=== PATIENT | male | born 1955 | race Caucasian/White ===

== ENCOUNTER 2021-01-17 12:26 | Inpatient (IN) | payer BC ==
[~2021-01-17] VITALS: Ht 165.1 cm; Wt 68.0 kg
[2021-01-17] MEDS ORDERED: MEDROL DOSE PACK4 MG PO (12:36)
--- NOTE | 2021-01-17 12:44 | NUR ---
FSBS= 95 MG/DL
[2021-01-17 13:15] LABS: CALC OSMOLALITY 281 mosm/kg (275-300); CALCIUM 8.6 mg/dL (8.5-10.1); CARBON DIOXIDE 27.8 mmol/L (21.0-32.0); CHLORIDE - SERUM 105 mmol/L (98-107); GLUCOSE 97 mg/dL (74-106); POTASSIUM - SERUM 4.1 mmol/L (3.5-5.1); SODIUM 140 mmol/L (136-145); UREA NITROGEN 22 mg/dL (7-18); eGFR NON AFRICAN AMERICAN 80 mL/min (90-120)
[2021-01-17 13:20] LABS: BASOPHILS 0.3 % (0-2); EOSINOPHILS 0.6 % (0-7); HEMATOCRIT 48.5 % (42.0-54.0); HEMOGLOBIN 16.1 g/dL (13.5-17.5); LYMPHOCYTES 15.4 % (15-50); MCH 31.1 pg (26.0-34.0); MCHC 33.3 g/dL (31.0-37.0); MCV 93.4 fL (80.0-100.0); MEAN PLATELET VOLUME 7.5 fL (7.4-10.4); MONOCYTES 5.6 % (2-11); NEUTROPHILS 78.1 % (40-80); PLATELET COUNT 216 10x3/uL (130-400); RBC 5.19 10x6/uL (4.20-6.10); RDW 14.2 % (11.5-14.5); WBC 12.4 10x3/uL (4.8-10.8)
[2021-01-17 13:40] LABS: ALKALINE PHOSPHATASE 48 U/L (30-120); ALT (SGPT) 22 U/L (10-68); BILIRUBIN - TOTAL 0.28 mg/dL (0.2-1.3); CKMB 1.2 U/L (0.0-3.6); CREATINE KINASE 35 UL (21-232); MAGNESIUM - SERUM 2.3 mg/dL (1.8-2.4); PROTEIN - SERUM 7.4 g/dL (6.4-8.2); THYROID STIMULATING HORMONE 1.55 uIU/mL (0.36-3.74)
[2021-01-17 13:43] LABS: TROPONIN-I < 0.017 ng/mL (0.000-0.060)
[2021-01-17 13:56] LABS: UDS - AMPHET NEGATIVE QUAL (NEGATIVE); UDS - BARB NEGATIVE QUAL (NEGATIVE); UDS - BENZO NEGATIVE QUAL (NEGATIVE); UDS - COCAINE NEGATIVE QUAL (NEGATIVE); UDS - OPIATE NEGATIVE QUAL (NEGATIVE); UDS - PCP NEGATIVE QUAL (NEGATIVE); UDS - THC NEGATIVE QUAL (NEGATIVE)
[2021-01-17 14:08] LABS: BACTERIA FEW HPF (<MOD); BILIRUBIN NEGATIVE (NEGATIVE); KETONE NEGATIVE mg/dL (< 1+); NITRITE NEGATIVE (NEGATIVE); SQUAMOUS EPITHELIAL <1 HPF (0-4); UROBILINOGEN NORMAL mg/dL (< 2); WHITE CELLS - URINE 1 HPF (0-1)
[2021-01-17 19:11] LABS: MAGNESIUM - SERUM 2.2 mg/dL (1.8-2.4)
[2021-01-17 20:00] VITALS: BP 167/90
--- NOTE | 2021-01-17 20:00 | NUR ---
PT UP WALKING AROUND ROOM. NEURO CHECK FINDS OBSTETRICS/GYNECOLOGY NURSE EQUAL/STRONG BILAT UPPER AND LOWER EXT. NO FACIAL DROOP AND TONGUE IS MIDLINE. DENIES NUMBNESS AND/OR TINGLING. PT ALERT & ORIENTED. DOES HAVE DIFFICULTY FINDING WORDS. TELEMETRY PLACE ON PT AND IS RUNNING SR. RIGHT AC IV REMOVED CATHETER INTACT DUE TO SWELLING WHILE BOLUS OF FLUID WAS INFUSING. PT HAS BILAT HEARING AIDS. HISTORY AND HOME MEDS REVIEWED. PT STATES HE TOOK PRESCRIPTION MEDS IN PAST BUT HAS NOT HAD PCP OR TAKEN ANY HOME MEDS IN 2 YEARS. NO OTHER NEEDS. WILL CONTINUE TO MONITOR.
[2021-01-17 20:40] LABS: APTT 39.7 SECONDS (22.8-39.4); INR 1.24 (0.85-1.17); PROTIME 14.5 SECONDS (11.6-15.0)
[2021-01-17 20:41] LABS: D-DIMER-QUANTITATIVE 1.92 ug/mLFEU (0.20-0.54)
[2021-01-18 00:33] VITALS: BP 123/73
[2021-01-18 02:46] VITALS: BMI 25.0
[2021-01-18 04:00] VITALS: BP 136/76
[2021-01-18 05:35] LABS: BASOPHILS 0.4 % (0-2); EOSINOPHILS 1.3 % (0-7); HEMATOCRIT 46.4 % (42.0-54.0); HEMOGLOBIN 15.5 g/dL (13.5-17.5); LYMPHOCYTES 31.9 % (15-50); MCH 31.2 pg (26.0-34.0); MCHC 33.3 g/dL (31.0-37.0); MCV 93.7 fL (80.0-100.0); MEAN PLATELET VOLUME 7.6 fL (7.4-10.4); MONOCYTES 9.9 % (2-11); NEUTROPHILS 56.5 % (40-80); PLATELET COUNT 200 10x3/uL (130-400); RBC 4.96 10x6/uL (4.20-6.10); RDW 14.4 % (11.5-14.5)
[2021-01-18 05:50] LABS: WBC 8.7 10x3/uL (4.8-10.8)
[2021-01-18 06:12] LABS: ALBUMIN 3.3 g/dL (3.4-5.0); ALKALINE PHOSPHATASE 44 U/L (30-120); ALT (SGPT) 18 U/L (10-68); BILIRUBIN - TOTAL 0.26 mg/dL (0.2-1.3); CALC OSMOLALITY 279 mosm/kg (275-300); CALCIUM 7.9 mg/dL (8.5-10.1); CARBON DIOXIDE 25.5 mmol/L (21.0-32.0); CHLORIDE - SERUM 106 mmol/L (98-107); CHOL - HDL RATIO 3.7 ratio (2.3-4.9); CHOLESTEROL, TOTAL 164 mg/dL (0-200); CREATININE - SERUM 0.8 mg/dL (0.6-1.3); GLUCOSE 79 mg/dL (74-106); HDL CHOLESTEROL 44 mg/dL (32-96); LDL CHOLESTEROL 101 mg/dL (0-100); LDL-HDL RATIO 2.3 ratio (1.5-3.5); MAGNESIUM - SERUM 2.1 mg/dL (1.8-2.4); POTASSIUM - SERUM 3.9 mmol/L (3.5-5.1); PROTEIN - SERUM 6.4 g/dL (6.4-8.2); SODIUM 140 mmol/L (136-145); TRIGLYCERIDE 96 mg/dL (30-200); UREA NITROGEN 18 mg/dL (7-18); eGFR NON AFRICAN AMERICAN > 90 mL/min (90-120)
[2021-01-18 08:49] VITALS: BP 160/90
[2021-01-18 09:35] VITALS: Ht 165.1 cm; Wt 68.0 kg
--- NOTE | 2021-01-18 10:20 | NUR ---
SLEEPING,WITHOUT DISTRESS.DOOR OPEN
[2021-01-18 12:34] VITALS: BP 151/88
[2021-01-18 16:43] VITALS: BP 140/75
--- NOTE | 2021-01-18 19:14 | NUR ---
PATIENT BACK FROM MRI. PLACED TELE MONITOR ON PATIENT. BED IN LOWEST POSITION AND CALL LIGHT IN REACH. PATIENT DENIES NEEDS AT THIS TIME.
[2021-01-18 20:00] VITALS: BP 110/52
[2021-01-19] VITALS: BP 120/77
[2021-01-19 04:00] VITALS: BP 137/65
[2021-01-19 06:23] LABS: BASOPHILS 0.4 % (0-2); EOSINOPHILS 1.7 % (0-7); HEMOGLOBIN 16.2 g/dL (13.5-17.5); LYMPHOCYTES 23.2 % (15-50); MCH 31.6 pg (26.0-34.0); MCHC 33.8 g/dL (31.0-37.0); MCV 93.5 fL (80.0-100.0); MEAN PLATELET VOLUME 7.1 fL (7.4-10.4); MONOCYTES 12.1 % (2-11); NEUTROPHILS 62.6 % (40-80); PLATELET COUNT 193 10x3/uL (130-400); RBC 5.14 10x6/uL (4.20-6.10); WBC 8.5 10x3/uL (4.8-10.8)
[2021-01-19 07:20] LABS: ALBUMIN 3.4 g/dL (3.4-5.0); ALKALINE PHOSPHATASE 49 U/L (30-120); CALC OSMOLALITY 277 mosm/kg (275-300); CALCIUM 8.5 mg/dL (8.5-10.1); CARBON DIOXIDE 24.8 mmol/L (21.0-32.0); CHLORIDE - SERUM 106 mmol/L (98-107); CREATININE - SERUM 0.9 mg/dL (0.6-1.3); GLUCOSE 93 mg/dL (74-106); MAGNESIUM - SERUM 2.1 mg/dL (1.8-2.4); POTASSIUM - SERUM 4.1 mmol/L (3.5-5.1); PROTEIN - SERUM 6.7 g/dL (6.4-8.2); SODIUM 138 mmol/L (136-145); UREA NITROGEN 19 mg/dL (7-18); eGFR NON AFRICAN AMERICAN 90 mL/min (90-120)
[2021-01-19 07:32] LABS: ALT (SGPT) 13 U/L (10-68)
--- NOTE | 2021-01-19 07:56 | NUR ---
RESTING IN BED WITH EYES CLOSED, EASILY AROUSED TO SPEECH. ALERT AND ORIENTED. IV LOCATED TO LEFT FA CURRENTLY SL. NO CURRENT S/S OF DISTRESS, DENIES CURRENT NEEDS, WILL CONT TO MONITOR.
[2021-01-19 09:52] VITALS: BP 155/86
[2021-01-19 13:40] VITALS: BP 148/81
[2021-01-19 17:08] VITALS: BP 151/82
[2021-01-19 20:00] VITALS: BP 142/90
[2021-01-20] VITALS: BP 127/77
--- NOTE | 2021-01-20 03:55 | NUR ---
I have reviewed this patient and I concur with the Shift Assessment completed by the Licensed Practical Nurse today this shift.
[2021-01-20 04:00] VITALS: BP 140/88
[2021-01-20 05:42] LABS: BASOPHILS 0.1 % (0-2); EOSINOPHILS 1.8 % (0-7); HEMATOCRIT 48.6 % (42.0-54.0); HEMOGLOBIN 16.8 g/dL (13.5-17.5); IMMATURE GRANULOCYTES 0.5 % (0-5); LYMPHOCYTE ABS# 1.83 10x3/uL (1.32-3.57); MCH 31.9 pg (26.0-34.0); MCHC 34.6 g/dL (31.0-37.0); MCV 92.4 fL (80.0-100.0); MEAN PLATELET VOLUME 10.1 fL (7.4-10.4); MONOCYTES 13.7 % (2-11); NEUTROPHIL ABS# 5.15 10x3/uL (1.78-5.38); NEUTROPHILS 61.9 % (40-80); PLATELET COUNT 178 10x3/uL (130-400); RBC 5.26 10x6/uL (4.20-6.10); RDW 13.4 % (11.5-14.5); WBC 8.3 10x3/uL (4.8-10.8)
[2021-01-20 06:04] LABS: ALBUMIN 3.4 g/dL (3.4-5.0); ANION GAP 12.8 mmol/L (8-16); BILIRUBIN - TOTAL 0.32 mg/dL (0.2-1.3); CALCIUM 8.5 mg/dL (8.5-10.1); CARBON DIOXIDE 27.2 mmol/L (21.0-32.0); CREATININE - SERUM 1.1 mg/dL (0.6-1.3); MAGNESIUM - SERUM 2.3 mg/dL (1.8-2.4); PROTEIN - SERUM 6.5 g/dL (6.4-8.2)
[2021-01-20 09:23] VITALS: BP 140/77
[2021-01-20] MEDS ORDERED: NICODERM CQ1 EAC3 TRANSDERM (11:50)
[2021-01-20] MEDS ORDERED: ELIQUIS5 MG PO (11:50)
[2021-01-20] MEDS ORDERED: LISINOPRIL10 MG PO (11:50)
[2021-01-20] MEDS ORDERED: PROTONIX40 MG PO (11:51)
[2021-01-20 12:31] VITALS: BP 133/64
--- NOTE | 2021-01-20 14:49 | MORECARE ---
CASE MANAGEMENT DISCHARGE SUMMARY PATIENT: ANGELES SIDDIQUI UNIT: [id number] ADM DATE: 01/17/21 AGE: 65 : 56 SEX: M ROOM/BED: D.2210 AUTHOR: ALEXA,DOC PHYSICIAN: REFERRING PHYSICIAN: CHRISTIANO SALES MD DATE OF SERVICE: 01/20/21 Case Management Discharge Planning Summary DCP REVIEW SUMMARY ANTICIPATED D/C DATE: 01/20/2021 EXPECTED LOS : 3 CASE STATUS: DCP Initiated INITIAL REVIEW: 01/20/2021 INITIAL REVIEWER: Yoanna Hua FINAL DISCHARGE DISPOSITION: : FINAL REVIEWER: FINAL REVIEW DATE: DCP [facility] Questions & Answers QUESTION: ANSWER : PATIENT: ANGELES SIDDIQUI ENCOUNTER: [id number] MEDICAL RECORD#: [id number] ADMISSION DATE: 01/17/2021 DISCHARGE DATE: ATTENDING MD: CHRISTIANO PRYOR : AGE: 65 MARITAL STATUS: S DC PLAN ID: [id number] FACILITY: [facility] PRINTED ON: 01/20/21 14:49 CT All edits/amendments must be made on the electronic document DICTATION DATE: 01/20/211448 SUPPLY CLERK: DM 01/20/21 144 RPT#: [id number] DC DATE: STATUS: ADM IN [facility] [address] [place] [address] END OF REPORT
--- NOTE | 2021-01-20 15:01 | MORECARE ---
CASE MANAGEMENT DISCHARGE SUMMARY PATIENT: ANGELES SIDDIQUI UNIT: [id number] ADM DATE: 01/17/21 AGE: 65 : 57 SEX: M ROOM/BED: D.2210 AUTHOR: ALEXA,DOC PHYSICIAN: REFERRING PHYSICIAN: CHRISTIANO SALES MD DATE OF SERVICE: 01/20/21 Case Management Discharge Planning Summary COMMENTS ENTERED DATE: 01/20/21 14:50 CT COMMENT TYPE: Discharge Planning REVIEWER: Yoanna Hua DC Plan - home, declines home health CM met with patient to discuss discharge planning/needs. I informed him that the doctor would like him to have home health for therapy. He declines. He states his doctor has set him up with therapy and "I have a message to call them and I haven't had a chance to do it yet." I informed him that I could set up his therapy with home health, but again he declines. He states he lives in a one level home with 3 steps to enter the home. States he lives alone at [address] [place] [address]. His phone number is [phone]. States his friend, Zach, will take him home. I informed him again of availability of home health and DME and he declines needs. Declination for home health signed. Home today. [facility] REVIEW SUMMARY ANTICIPATED D/C DATE: 01/20/2021 EXPECTED LOS : 3 CASE STATUS: DCP Initiated INITIAL REVIEW: 01/20/2021 INITIAL REVIEWER: Yoanna Hua FINAL DISCHARGE DISPOSITION: : FINAL REVIEWER: FINAL REVIEW DATE: PRP Focus Questions & Answers [facility] Evaluation QUESTION: ANSWER Patient and/or caregiver agree upon recommended discharge plan? : Yes Family / Caregiver's ability to cope with chronic illness: : a. Adequate (ability to meet patient's medical needs, ensures patient attends medical appts.) Patient's current cognitive status: : *Oriented to person, place, situation, time and present Patient's ability to cope with chronic illness : d. No chronic illness Patient gives permission to discuss discharge plans with: (name, relationship and number) : Zach Soares - friend - [phone] Does the patient have the ability to pay for or attain post discharge needs / services? : Yes Functional screen assessment: : Basic needs can adequately be met by self Family / Caregiver's ability to cope with chronic illness: : a. Adequate (ability to meet patient's medical needs, ensures patient attends medical appts.) Physical Status: : Independent with ADL's Equipment needed for post hospitalization: : None Is there a likelihood that the patient will require additional services to return to the preadmission environment? : No Living Arrangements: : Home Alone with Support Results of this evaluation have been discussed with: : Patient Patient with capacity for self-care or can be cared for in same environment as prior to hospitalization? : Yes Baseline cognitive status: : *Oriented to person, place, situation, time and present Physical environment modification needed / anticipated for discharge: : No Medication Management: : Patient states can afford medications [facility] name([facility]): : [facility] Does Patient have transportation to get home and to follow-up medical appointments when discharged from the hospital? : Yes Would patient like to participate in any Care Coordination programs (if applicable): : Not applicable Does the patient have electricity at home? : Yes Does the patient have running water in their house? : Yes Equipment in use: : None Mental health screen: : No mental health history Psychosocial status: : Other Abuse/Neglect: : None DCP Re-evaluation QUESTION: ANSWER Would patient like to participate in any Care Coordination programs (if applicable): : Not applicable PATIENT: ANGELES SIDDIQUI ENCOUNTER: [id number] MEDICAL RECORD#: [id number] ADMISSION DATE: 01/17/2021 DISCHARGE DATE: ATTENDING MD: CHRISTIANO PRYOR : AGE: 65 MARITAL STATUS: S DC PLAN ID: [id number] FACILITY: [facility] PRINTED ON: 01/20/21 15:01 CT All edits/amendments must be made on the electronic document DICTATION DATE: 01/20/21 1501 HEALTH SERVICES RN: DM 01/20/21 1501 RPT#: [id number] DC DATE: STATUS: ADM IN [facility] [address] [place] [address] END OF REPORT
[2021-01-20 17:23] VITALS: BP 162/94
--- NOTE | 2021-01-20 17:38 | NUR ---
THANK YOU FOR THIS REFERRAL. PATIENT NOT INPATIENT REHAB APPRORIATE HE INDEPENDENT FOR ADLS- LAINEY CRONIN LPN, CLINICAL LIAISON
--- NOTE | 2021-01-20 18:35 | MORECARE ---
CASE MANAGEMENT DISCHARGE SUMMARY PATIENT: ANGELES SIDDIQUI UNIT: [id number] ADM DATE: 01/17/21 AGE: 65 : 57 SEX: M ROOM/BED: D.2210 AUTHOR: ALEXA,DOC PHYSICIAN: REFERRING PHYSICIAN: CHRISTIANO SALES MD DATE OF SERVICE: 01/20/21 Case Management Discharge Planning Summary COMMENTS ENTERED DATE: 01/20/21 14:50 CT COMMENT TYPE: Discharge Planning REVIEWER: Yoanna Hua DC Plan - home, declines home health CM met with patient to discuss discharge planning/needs. I informed him that the doctor would like him to have home health for therapy. He declines. He states his doctor has set him up with therapy and "I have a message to call them and I haven't had a chance to do it yet." I informed him that I could set up his therapy with home health, but again he declines. He states he lives in a one level home with 3 steps to enter the home. States he lives alone at [address] [place] [address]. His phone number is [phone]. States his friend, Zach, will take him home. I informed him again of availability of home health and DME and he declines needs. Declination for home health signed. Home today. [facility] REVIEW SUMMARY ANTICIPATED D/C DATE: 01/20/2021 EXPECTED LOS : 3 CASE STATUS: DCP Initiated INITIAL REVIEW: 01/20/2021 INITIAL REVIEWER: Yoanna Hua FINAL DISCHARGE DISPOSITION: : FINAL REVIEWER: FINAL REVIEW DATE: KYP Focus Questions & Answers [facility] Evaluation QUESTION: ANSWER Patient and/or caregiver agree upon recommended discharge plan? : Yes Family / Caregiver's ability to cope with chronic illness: : a. Adequate (ability to meet patient's medical needs, ensures patient attends medical appts.) Patient's current cognitive status: : *Oriented to person, place, situation, time and present Patient's ability to cope with chronic illness : d. No chronic illness Patient gives permission to discuss discharge plans with: (name, relationship and number) : Zach Soares - friend - [phone] Does the patient have the ability to pay for or attain post discharge needs / services? : Yes Functional screen assessment: : Basic needs can adequately be met by self Family / Caregiver's ability to cope with chronic illness: : a. Adequate (ability to meet patient's medical needs, ensures patient attends medical appts.) Physical Status: : Independent with ADL's Equipment needed for post hospitalization: : None Is there a likelihood that the patient will require additional services to return to the preadmission environment? : No Living Arrangements: : Home Alone with Support Results of this evaluation have been discussed with: : Patient Patient with capacity for self-care or can be cared for in same environment as prior to hospitalization? : Yes Baseline cognitive status: : *Oriented to person, place, situation, time and present Physical environment modification needed / anticipated for discharge: : No Medication Management: : Patient states can afford medications [facility] Does Patient have transportation to get home and to follow-up medical appointments when discharged from the hospital? : Yes Would patient like to participate in any Care Coordination programs (if applicable): : Not applicable Does the patient have electricity at home? : Yes Does the patient have running water in their house? : Yes Equipment in use: : None Mental health screen: : No mental health history Psychosocial status: : Other Abuse/Neglect: : None DCP Re-evaluation QUESTION: ANSWER Would patient like to participate in any Care Coordination programs (if applicable): : Not applicable PATIENT: ANGELES SIDDIQUI ENCOUNTER: [id number] MEDICAL RECORD#: [id number] ADMISSION DATE: 01/17/2021 DISCHARGE DATE: 01/20/2021 ATTENDING MD: CHRISTIANO PRYOR : AGE: 65 MARITAL STATUS: S DC PLAN ID: [id number] FACILITY: [facility] PRINTED ON: 01/20/21 18:35 CT All edits/amendments must be made on the electronic document DICTATION DATE: 01/20/211833 GOLF BALL INSPECTOR: TRACE 01/20/211833 RPT#: [id number] DC DATE:01/20/21 STATUS: DIS IN [facility] [address] [place] [address] END OF REPORT
--- NOTE | 2021-01-21 13:34 | EC ---
PATIENT:ANGELES SIDDIQUI DATE OF SERVICE: 01/17/21 SEX: M MEDICAL RECORD: [id number] DATE OF : 57 LOCATION:D.[facility] AGE OF PATIENT: 65 ADMISSION DATE: 01/17/21 REFERRING PHYSICIAN: INTERPRETING PHYSICIAN: ADALBERTO MORRISON MD ECHOCARDIOGRAM REPORT ECHO CHARGES 4 ECHO COMPLETE Date: 01/18/21 CLINICAL DIAGNOSIS: LVH, TIA ECHOCARDIOGRAPHIC MEASUREMENTS (adult normal given) AC root (d.<3.7cm) 3.1 cm LV Septum d (<1.2 cm> 1.1 cm Valve Excursion 1.5 cm LV Septum (systole) 1.3 cm Left Atria (s.<4.0cm> 4.2 cm LVPW d(<1.2cm) 0.7 cm RV (d.<2.3cm) 2.8 cm LVPW (sytole) 1.0 cm LV diastole(<5.6CM) 4.5 cm MV E-F(>70mm/sec) cm LV systole 3.1 cm LVOT Diameter 1.5 cm MV exc.(>10mm) 1.6 cm Est.ejection fraction (50-75%) % DOPPLER: LVIT cm/sec A 111 cm/sec E 105 cm/sec LA cm/sec RVSP 16 mmHg LVOT 119 cm/sec AOP1/2T m/s Asc. Ao 142 cm/sec RVOT 75 cm/sec RA cm/sec PA 84 cm/sec AV Gradient Peak 8.1 mmHg AV Mean 5.4 mmHg AV Area 1.8 cm MV Gradient Peak 5.2 mmHg MV Mean 2.0 mmHg MV Area cm COMMENTS: Chaperone: Macrina PALMER Compounder Sterile Products: 5 Dr. Morrison TAPE# Pericardial Effusion N DATE OF SERVICE: 01/19/2021 CLINICAL DIAGNOSIS: Transient ischemic attack/left ventricular hypertrophy. INTERPRETATION: Technically difficult study, overall normal left ventricular chamber size and contractile function, ejection fraction 55%. Left atrial chamber appears normal. Right atrium and right ventricular chamber is not well visualized, but appear normal. Aortic valve is not well visualized. No aortic regurgitation/stenosis. Mitral valve appears normal. Trace mitral regurgitation. Tricuspid valve not well visualized. Trace tricuspid ECHOCARDIOGRAM REPORT [id number] ANGELES SIDDIQUI regurgitation. Pulmonic valve not well visualized. No pulmonary regurgitation noted. No pericardial effusion visualized. IMPRESSION: Technically difficult study, overall normal left ventricular chamber size and contractile function, ejection fraction of 55%. TRANSINT:[id number] Voice Confirmation ID: [id number] DOCUMENT ID: [id number] ADALBERTO MORRISON MD at 1334 CC: [id number] DICTATION DATE: 01/19/21 0955 FARM BOSS: 01/19/21 1257 DIS IN 01/20/21 [place] [id number] [place] [id number]
--- NOTE | 2021-01-21 14:48 | MORECARE ---
CASE MANAGEMENT DISCHARGE SUMMARY PATIENT: ANGELES SIDDIQUI UNIT: [id number] ADM DATE: 01/17/21 AGE: 65 : 57 SEX: M ROOM/BED: D.2210 AUTHOR: ALEXA,DOC PHYSICIAN: REFERRING PHYSICIAN: CHRISTIANO SALES MD DATE OF SERVICE: 01/21/21 Case Management Discharge Planning Summary COMMENTS ENTERED DATE: 01/20/21 14:50 CT COMMENT TYPE: Discharge Planning REVIEWER: Yoanna Hua DC Plan - home, declines home health CM met with patient to discuss discharge planning/needs. I informed him that the doctor would like him to have home health for therapy. He declines. He states his doctor has set him up with therapy and "I have a message to call them and I haven't had a chance to do it yet." I informed him that I could set up his therapy with home health, but again he declines. He states he lives in a one level home with 3 steps to enter the home. States he lives alone at [address] [place] [address]. His phone number is [phone]. States his friend, Zach, will take him home. I informed him again of availability of home health and DME and he declines needs. Declination for home health signed. Home today. [facility] REVIEW SUMMARY ANTICIPATED D/C DATE: 01/20/2021 EXPECTED LOS : 3 CASE STATUS: DCP Initiated INITIAL REVIEW: 01/20/2021 INITIAL REVIEWER: Yoanna Hua FINAL DISCHARGE DISPOSITION: : FINAL REVIEWER: FINAL REVIEW DATE: [facility] Focus Questions & Answers [facility] Evaluation QUESTION: ANSWER Patient and/or caregiver agree upon recommended discharge plan? : Yes Patient's current cognitive status: : *Oriented to person, place, situation, time and present Patient's ability to cope with chronic illness : d. No chronic illness Patient gives permission to discuss discharge plans with: (name, relationship and number) : Zach Soares - friend - [phone] Family / Caregiver's ability to cope with chronic illness: : a. Adequate (ability to meet patient's medical needs, ensures patient attends medical appts.) Does the patient have the ability to pay for or attain post discharge needs / services? : Yes Functional screen assessment: : Basic needs can adequately be met by self Family / Caregiver's ability to cope with chronic illness: : a. Adequate (ability to meet patient's medical needs, ensures patient attends medical appts.) Physical Status: : Independent with ADL's Equipment needed for post hospitalization: : None Is there a likelihood that the patient will require additional services to return to the preadmission environment? : No Living Arrangements: : Home Alone with Support Results of this evaluation have been discussed with: : Patient Patient with capacity for self-care or can be cared for in same environment as prior to hospitalization? : Yes Baseline cognitive status: : *Oriented to person, place, situation, time and present Physical environment modification needed / anticipated for discharge: : No Medication Management: : Patient states can afford medications [facility] Does Patient have transportation to get home and to follow-up medical appointments when discharged from the hospital? : Yes Would patient like to participate in any Care Coordination programs (if applicable): : Not applicable Does the patient have electricity at home? : Yes Does the patient have running water in their house? : Yes Equipment in use: : None Mental health screen: : No mental health history Psychosocial status: : Other Abuse/Neglect: : None DCP Re-evaluation QUESTION: ANSWER Would patient like to participate in any Care Coordination programs (if applicable): : Not applicable PATIENT: ANGELES SIDDIQUI ENCOUNTER: [id number] MEDICAL RECORD#: [id number] ADMISSION DATE: 01/17/2021 DISCHARGE DATE: 01/20/2021 ATTENDING MD: CHRISTIANO PRYOR : AGE: 65 MARITAL STATUS: S DC PLAN ID: [id number] FACILITY: [facility] PRINTED ON: 01/21/21 14:48 CT All edits/amendments must be made on the electronic document DICTATION DATE: 01/21/211447 COMPUTER ENGINEERING TECHNICIAN: TRACE 01/21/21 1448 RPT#: [id number] DC DATE:01/20/21 STATUS: DIS IN [facility] [address] [place] [address] END OF REPORT
== END 2021-01-20 18:32 | disposition home or self-care (01) | DRG 65 ==
LOC: D.ER 12:26 → D.MS 15:32
PROVIDERS: Emergency Medicine; ADMIT Emergency Medicine; ATTEND Emergency Medicine
DX: I63.432 Cerebral infarction due to embolism of left posterior cerebral artery (principal); I16.9 Hypertensive crisis, unspecified; F17.203 Nicotine dependence unspecified, with withdrawal; G81.91 Hemiplegia, unspecified affecting right dominant side; R47.01 Aphasia; D72.829 Elevated white blood cell count, unspecified; I25.10 Atherosclerotic heart disease of native coronary artery without angina pectoris; Z95.1 Presence of aortocoronary bypass graft; Z95.5 Presence of coronary angioplasty implant and graft; I63.412 Cerebral infarction due to embolism of left middle cerebral artery